=== PATIENT | male | born 1950 | race Caucasian/White ===

== ENCOUNTER 2024-03-20 06:38 | Emergency (ER) | payer MEDICARE, SELFPAY ==
[2024-03-20 06:38] VITALS: PULSE 77; RESP 18; O2SAT 98; BMI 21.1
[2024-03-20 07:26] VITALS: BP 130/92; PULSE 100; RESP 16; TEMP 36.6; O2SAT 100
--- NOTE | 2024-03-20 07:34 | XR_ITS ---
Examination: CT abdomen and pelvis without contrast. Coronal 3-D reconstructions. Sagittal 2-D reconstructions. Date and time of exam:March 20, 2024 at 0752 hrs. Indications: Right groin pain 6 months CTDI: vol (mGy): 7.97 DLP: (mGycm): 436 Technique: Axial images of the abdomen have been obtained, 3 mm slice thickness Intravenous contrast material has not been administered. Low dose protocols were performed. One or more of the following dose reduction techniques were used; automated exposure control, adjustment of the mA and/or KV according to patient size, use of iterative reconstruction technique. Findings: No focal liver or splenic lesion. Distended small bowel loops No pancreatic mass. Moderate bilateral renal parenchymal scar formation, no hydronephrosis Abdominal aortic calcification no aneurysmal dilatation 3 cm umbilical hernia. No pericecal inflammatory change. Small bowel is present in bilateral inguinal hernia defects, incarcerated bowel in the right inguinal hernia defect Moderate prostatomegaly Impression: Small bowel obstruction secondary to incarcerated small bowel in a right inguinal hernia defect, recommend surgical consultation
--- NOTE | 2024-03-20 07:35 | PD.EDRME ---
Rapid Medical Screening Exam E Arrival date/time: 03/20/24 06:38 73-year-old male with history of hernia x 6 months right inguinal region presents to the emergency department today complaints of pain to his funny Chief Complaint: Hip Injury/Pain Time Seen by Provider: 03/20/24 06:42 Vital signs: Vital Signs Temperature 97.8 F 03/20/24 07:26 Pulse Rate 100 03/20/24 07:26 Respiratory Rate 16 03/20/24 07:26 Blood Pressure 130/92 H 03/20/24 07:26 Pulse Oximetry (%) 100 03/20/24 07:26 Oxygen Delivery Method Room Air 03/20/24 07:26
[2024-03-20] MEDS: HYDROcodone/APAP 5/325 TABLET 1 TAB PO (07:41)
[2024-03-20] MEDS: ONDANSETRON ODT 4 MG TABRAP PO (07:42)
[2024-03-20 07:55] LABS: Basophils # (Auto) 0.1 Thou/mm3 (0.0-0.2); Basophils % (Auto) 1 % (0-2.5); Eosinophils # (Auto) 0.6 Thou/mm3 (0.0-0.5); Eosinophils % (Auto) 6 % (0-10); Hematocrit 43.4 % (41.0-53.0); Hemoglobin 14.9 g/dL (13.5-16.0); Immature Granulocytes % (Auto) 0 % (0-0); Immature Granulocytes Auto 0.02 Thou/mm3 (0.00-0.00); Lymphocytes # (Auto) 2.1 Thou/mm3 (1.0-4.8); Lymphocytes % (Auto) 20 % (10-50); Mean Corpuscular HGB Conc 34.3 g/dl (31.0-37.0); Mean Corpuscular Hemoglobin 31.6 pg (25.0-35.0); Mean Corpuscular Volume 92 fL (80-100); Monocytes # (Auto) 0.7 Thou/mm3 (0.0-0.8); Monocytes % (Auto) 7 % (0-12); Neutrophils # (Auto) 7.1 Thou/mm3 (1.8-7.7); Neutrophils % (Auto) 67 % (37-80); Nucleated Red Blood Cell % 0 /100 WBC (0); Platelet Count 228 Thou/mm3 (140-440); RDW Standard Deviation 42.7 fL (35.1-43.9); Red Blood Count 4.72 Miln/mm3 (4.50-5.90); White Blood Count 10.6 Thou/mm3 (3.8-10.6)
[2024-03-20 08:12] LABS: Alanine Aminotransferase 12 U/L (10-49); Albumin, Serum 5.1 gm/dL (3.4-4.8); Albumin/Globulin Ratio 1.6 (1.2-2.2); Alkaline Phosphatase 97 U/L (46-116); Anion Gap 10 (7-16); Aspartate Amino Transferase 11 U/L (0-34); BUN/Creatinine Ratio 18 Ratio (12-20); Bilirubin,Total 0.9 mg/dL (0.3-1.2); Blood Urea Nitrogen 49 mg/dL (9-23); Calcium 10.3 mg/dL (8.3-10.6); Calcium (Corrected) 10.3 mg/dL (8.5-10.1); Carbon Dioxide 29.5 mMol/L (20.0-31.0); Chloride 98 mMol/L (98-107); Creatinine (Component) 2.8 mg/dL (0.6-1.3); Estimated Creatinine Clearance 20.7 mL/min (>60); Globulin 3.1 gm/dL (2.3-3.5); Glucose 116 mg/dL (74-106); Lipase 47 U/L (12-53); Osmolality,Calculated 287 (275-295); Potassium 4.6 mMol/L (3.4-5.1); Sodium 137 mMol/L (136-145); Total Protein 8.2 gm/dL (5.7-8.2); eGFR 23 See Note
--- NOTE | 2024-03-20 08:38 | PC.NURSE ---
FEED BLENDER WENT TO PUT PT IN ROOM AND PT STATED I WANT TO LEAVE. TRIAGE NURSE INFORMED PT THAT HE WOULD BE LEAVING AGAINST MEDICAL ADVICE AND THAT SIGNING THE AMA FORM WOULD RELIEVE HOSPITAL OF RESPONSIBILITY IF HE GOT WORSE OR . JAMAR GARCIA N/P CAME TO TRIAGE DESK TO TALK WITH PT AND TOLD PT THAT HE NEEDED EMERGENT SURGERY AND PT SAID I WILL COME BACK AND SCHEDULE IT ANOTHER TIME. PT SIGNED AMA FORM. 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 PT STATES I DON'T CARE AND WANT TO GO HOME.
[2024-03-20 08:46] LABS: Collection Type, Urine Clean Catch; Squamous Epithelial Cell,Urine 0 /hpf (0-5)
[2024-03-20 08:52] LABS: Bilirubin,Urine Negative (Negative); Blood,Urine Negative (Negative); Clarity,Urine Clear (Clear/Hazy); Color,Urine Yellow (Lt Yel-Yel); Culture Indicated,Urine Not Indicated; Glucose, Urine Negative (Negative); Hyaline Casts,Urine < 1 /hpf (0-1); Ketones,Urine Negative (Negative); Leukocyte Esterase,Urine Negative (Negative); Nitrite,Urine Negative (Negative); PH,Urine 6.5 (5.0-7.0); Protein,Urine 1+ (Neg - Trace); RBC,Urine 2 /hpf (0-3); Specific Gravity,Urine 1.023 (1.001-1.035); Urobilinogen,Urine Negative mg/dL (0.0-1.0); WBC,Urine 1 /hpf (0-5)
[2024-03-20 09:02] LABS: Amphetamine/Methamp Scrn,U Positive (Negative); Barbiturate Screen,Urine Negative (Negative); Benzodiazepines Screen,Urine Negative (Negative); Benzoylecgonine Screen, Ur Negative (Negative); Fentanyl Screen,Urine Negative (Negative); Opiate Screen,Urine Negative (Negative); THC Screen,Urine Negative (Negative)
== END 2024-03-20 08:38 | disposition left against medical advice (07) ==
LOC: SERX 08:10
PROVIDERS: Nurse Practitioner Primary Care; Emergency Provider Emergency Medicine; PCP Family Medicine
DX: M25.559 Pain in unspecified hip (principal); Z53.29 Procedure and treatment not carried out because of patient's decision for other reasons
CPT/HCPCS: 36415; 74176; 80053; 80307; 81001; 83690; 85025; 99281; Q0162; A9270

== ENCOUNTER 2024-03-20 12:34 | Emergency (ER) | payer MEDICARE, SELFPAY ==
[2024-03-20 12:42] VITALS: BMI 22.4
[2024-03-20 12:51] VITALS: BP 131/102; PULSE 100; RESP 20; TEMP 36.6; O2SAT 99
[2024-03-20] MEDS: CEFOXITIN 2 GM in SODIUM CHLORIDE 0.9% (P) 50 ML IV (12:53)
--- NOTE | 2024-03-20 12:54 | EDNOTE_ITS ---
<Statement entered by Genesis Longoria MD - 03/21/24 09:15> As co-signing physician, I was present and available for consult prn. I concur with the plan and care as documented by the midlevel provider. ED Abdominal Pain RME/HPI General Chief Complaint: Abdominal Pain Stated complaint: ABD PAIN, AMA EARLIER, HAS BOWEL OBSTRUCTION Time seen by provider: 03/20/24 12:44 Arrival date/time: 03/20/24 12:34 RME / HPI RME / HPI narrative: 73-year-old male patient with significant history of methamphetamine abuse, history of right inguinal hernia, came in for evaluation regarding pain and worsening swelling to the right inguinal area, has been ongoing since yesterday, getting worse today, severity 10 out of 10. Patient also complaining of nausea but denies any vomiting denies any fever denies any diarrhea constipation denies any other complaints. Patient was seen earlier workup was done and left AMA. Came back because of worsening pain. Denies any abdominal surgery. Related Data Allergies Allergy/AdvReac Type Severity Reaction Status Date / Time Penicillins Allergy Severe Rash Verified 03/20/24 12:36 Review of Systems Review of Systems Narrative Review of Systems: Review of system reviewed and within normal limits except mentioned in HPI ED Exam Narrative Physical exam: VITAL SIGNS: Reviewed. GENERAL APPEARANCE: Alert and interactive, follows commands, no acute distress, HEAD AND FACE: Non-traumatic. ENT: PERRL, pink conjunctivitis, eyelid no trauma, Mucous membrane moist. NECK: Supple, nontender, no nuchal rigidity. CHEST: No tenderness, no crepitus, no paradoxical movement, no retractions. LUNGS: Clear, well ventilated, symmetric, no rales, no wheezing, no ronchi, no stridor, good breath sounds bilaterally. HEART: Regular rate, regular rhythm, no murmur, no gallops. ABDOMEN: Soft, positive bowel sounds, nondistended, no guarding, swelling tenderness right inguinal hernia, hard to touch, RECTAL: Deferred. GENITAL: Deferred. NEUROLOGICAL: Gross motor function intact sensory function intact, Appropriate for age. MUSCULOSKELETAL: low back nontender, full range of motion. EXTREMITIES: Nontender, full range of motion. SKIN: Color pink, dry, no rash, no lacerations, no abrasions, no contusions. LYMPHATICS: Deferred. Course Quality Measures none Orders Category Date Time Status EKG (ED ONLY) *Do not use* NOW Care 03/20/24 13:21 Completed Insert IV NOW Care 03/20/24 13:21 Active Consult to General Surgery Stat Cons 03/20/24 12:53 Ordered EKG (ED Only) Stat Exams 03/20/24 13:21 Draft Lactate (Lactic Acid) Stat Lab 03/20/24 15:00 Completed Cefoxitin [Mefoxin] 2 gm Med 03/20/24 12:52 Discontinued Sodium Chloride 0.9% (P) [Ns 0.9% (P)] 50 ml IV X1 HYDROmorphone INJ [Dilaudid Inj] Med 03/20/24 13:41 Discontinued 1 mg IVP X1 ONE Morphine Inj Med 03/20/24 12:52 Discontinued 4 mg IVP X1 ONE Ondansetron Inj [Zofran Inj] Med 03/20/24 12:52 Discontinued 4 mg IV X1 ONE Sodium Chloride 0.9% 1000 ml [Ns] 1,000 ml Med 03/20/24 14:51 Discontinued IV 999 mls/hr Vital Signs Vital signs: Vital Signs Temperature 97.8 F 03/20/24 12:51 Pulse Rate 100 03/20/24 12:51 Respiratory Rate 20 03/20/24 12:51 Blood Pressure 131/102 H 03/20/24 12:51 Pulse Oximetry (%) 99 03/20/24 12:51 Oxygen Delivery Method Room Air 03/20/24 12:51 Abdominal Pain MDM MDM Narrative MDM Narrative:: 73-year-old male patient with significant history of methamphetamine abuse, history of right inguinal hernia, came in for evaluation regarding pain and worsening swelling to the right inguinal area, has been ongoing since yesterday, getting worse today, severity 10 out of 10. Patient also complaining of nausea but denies any vomiting denies any fever denies any diarrhea constipation denies any other complaints. Patient was seen earlier workup was done and left AMA. Came back because of worsening pain. Denies any abdominal surgery. I reviewed patient's CT scan and laboratory workup that was done earlier today and showed small bowel obstruction with incarcerated right-sided inguinal hernia. I tried to reduce it after morphine, with minimal success, Dr. Longoria my EDMD tried to reduce it. It Dilaudid IV 1 mg and 100% successful reduction. Patient verbalized complete resolution of pain. Spoke with Dr. Ng, general surgeon on-call told me that there is no need to admit this patient patient is safe to be discharged home and just follow-up in the clinic next week Patient data External records reviewed:: None Clinical information provided by:: patient Social determinants that could affect healthcare access:: substance use Patient has the following chronic illnesses:: Methamphetamine abuse How is presenting disease/condition affected by chronic disease/condition?: no chronic disease Evaluation data The following diagnostics were reviewed and interpreted by me:: lab results, radiology exam(s) and EKG tracing(s) Lab and/or radiology exams considered but not ordered:: None Interpretation Summary: Patient's EKG showed sinus rhythm, ventricular rate of 80 bpm, no ST segment elevation or depression noted. CT scan of the abdomen and pelvis showed small bowel obstruction secondary to incarcerated right inguinal hernia. Laboratory workup all came back normal. Lactic acid also also noted to be normal. Medications / Prescriptions Medications or Prescriptions considered but not ordered:: None Medication administrations:: Medication Administration History Discontinued Medications Hydromorphone HCl (Hydromorphone Inj 2 Mg/Ml Vial) 1 mg IVP X1 ONE Stop: 03/20/24 13:42 Last Admin: 03/20/24 13:45 Dose: 1 mg Documented By: DANIELLA Cefoxitin Sodium 2 gm/ Sodium (Chloride) 50 mls @ 100 mls/hr IV X1 ONE Stop: 03/20/24 13:21 Last Infusion: 03/20/24 13:25 Dose: Infused Documented By: Admin: 03/20/24 12:53 Dose: 100 mls/hr Documented By: CANDICE Sodium Chloride (Ns) 1,000 mls @ 999 mls/hr IV .Q1H1M ONE Stop: 03/20/24 15:51 Last Infusion: 03/20/24 19:08 Dose: Infused Documented By: Admin: 03/20/24 16:40 Dose: 999 mls/hr Documented By: CANDICE Morphine Sulfate (Morphine Sulf Inj 10 Mg/Ml Vial) 4 mg IVP X1 ONE Stop: 03/20/24 12:53 Last Admin: 03/20/24 13:05 Dose: 4 mg Documented By: TERRI Ondansetron HCl (Ondansetron Inj 2 Mg/Ml Inj 2 Ml) 4 mg IV X1 ONE; Protocol Stop: 03/20/24 12:53 Last Admin: 03/20/24 13:05 Dose: 4 mg Documented By: IV fluids, morphine, Dilaudid, cefoxitin IV Consultations Consultation(s) initiated? (list below): Yes Consultation #1 (Physician, Specialty, Details): Spoke with Dr. Ng, general surgeon on-call, thank you Dr. Ng Diagnosis Differential diagnosis abdominal pain: abdominal pain, constipation and other (Right reducible inguinal hernia) Most likely diagnosis given after review of the tests above:: Right reducible inguinal hernias Admission Indicated Admission indicated?: not indicated Explain why admission is indicated or not indicated:: Stable. Patient was tolerating p.o. intake in the emergency room with no recu rrence of abdominal pain or inguinal hernia. Patient is passing gas. Admission Request Was there a request for admission?: No Disposition Plan Disposition Plan: Discharge Discharge Attestation Discharge Attestation: The patient and all family members were given an opportunity to ask questions and understood the discharge instructions. Discharge instructions specifically effects, indications for sooner follow up or return to the emergency department, and the expected course of current diagnosis. Patient condition: Stable Discharge Plan Plan Patient Disposition: HOME (Self Care) Disposition Comment: Stable Prescriptions/Referrals Referrals: No Primary/Family,Physician [Primary Care Provider] - In 1 week Problem List Clinical Impression: Reducible right inguinal hernia Patient/Caregiver Discharge Instructions Discharge Activity: activity as tolerated Education Materials: What Is a Hernia? Additional Instructions: Thank you for the opportunity for serving you today. You are stable for discharged . You are advised to: Follow-up with Dr. Ng's office in 1 to 2 days Return to ED for worsening of symptoms Increase oral fluids No pushing no lifting until seen by general surgeon Print Language: Fijian Stand Alone Forms: Sary Award Info., Patient Portal Info Letter PA/ANUP Supervising Physician LUIS/ANUP Supervising Physician: MD Tory
[2024-03-20] MEDS: ONDANSETRON INJ 2 MG/ML INJ 2 ML 4 MG IV (13:05)
[2024-03-20] MEDS: MORPHINE SULF INJ 10 MG/ML VIAL 4 MG IVP (13:05)
--- NOTE | 2024-03-20 13:21 | EKG_ITS ---
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
[2024-03-20 13:35] VITALS: BP 106/72; PULSE 82; RESP 18; TEMP 36.4; O2SAT 94
[2024-03-20] MEDS: HYDROmorphone INJ 2 MG/ML VIAL 1 MG IVP (13:45)
--- NOTE | 2024-03-20 14:28 | PD.EDADDENDU ---
Emergency Room Addendum <Lena Lindsey - Last Filed: 03/20/24 15:06> Addendum Narrative: 1400: I was called for right inguinal hernia reduction. Please refer to the emergency department record for history and examination from initial note. Hernia Reduction Procedure Note Consent: Verbal consent obtained. Risks and benefits: risks, benefits and alternatives were discussed Consent given by: patient Patient understanding: patient states understanding of the procedure being performed Patient consent: the patient's understanding of the procedure matches consent given Patient identity confirmed: verbally with patient and arm band Time out: Immediately prior to procedure a time out was called to verify the correct patient, procedure, equipment, sales support technician and site/side marked as required. Location details: right inguinal hernia Reduction Procedure: Direct pressure, constant Results: After procedure, fully reduced. No TTP. Complication: Tolerated well without complication. <Genesis Longoria MD - Last Filed: 04/12/24 13:46> Addendum Narrative: Please refer to the emergency department record for history and examination from initial note. Indication: Incarcerated right inguinal hernia Procedure: Right Inguinal Hernia Reduction Consent: Verbal consent obtained. Risks and benefits: risks, benefits and alternatives were discussed Consent given by: patient Patient understanding: patient states understanding of the procedure being performed Patient consent: the patient's understanding of the procedure matches consent given Patient identity confirmed: verbally with patient and arm band Time out: Immediately prior to procedure a time out was called to verify the correct patient, procedure, equipment, sales support technician and site/side marked as required. Location details: right inguinal hernia Reduction Procedure: Direct pressure, constant Results: After procedure, fully reduced. No TTP. Complication: Tolerated well without complication.
[2024-03-20] MEDS: SODIUM CHLORIDE 0.9% 1000 ML 1,000 ML 999 ML IV (16:40)
[2024-03-20 17:00] VITALS: BP 149/98; PULSE 67; RESP 16; TEMP 36.6; O2SAT 97
[2024-03-20 19:29] VITALS: BP 134/95; PULSE 67; RESP 14; O2SAT 95
--- NOTE | 2024-03-20 19:29 | PC.NURSE ---
Assumed care of pt. Pt is oriented but drifts back to sleep when not stimulated. Pt's pupils are pinpoint. Pt provided with meal tray but he continues to drift to sleep and has been unable to eat at this time.
[2024-03-20 20:23] VITALS: BP 113/83; PULSE 66; RESP 16; O2SAT 97
[2024-03-20 23:19] VITALS: PULSE 67; RESP 16; O2SAT 98
== END 2024-03-20 23:20 | disposition home or self-care (01) ==
PROVIDERS: Nurse Practitioner Family; Emergency Provider Emergency Medicine
DX: K40.30 Unilateral inguinal hernia, with obstruction, without gangrene, not specified as recurrent (principal)
CPT/HCPCS: 36415; 83605; 93005; 96361; 96365; 96375; 99284; J0694; J2270; J2405; J3490; J7030; J7050

== ENCOUNTER 2024-04-16 07:30 | Day surgery (SDC) | payer MEDICARE, SELFPAY ==
--- NOTE | 2024-04-15 12:10 | EKG_ITS ---
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
[2024-04-15 12:14] VITALS: BMI 21.1
[2024-04-15 13:18] LABS: Basophils # (Auto) 0.1 Thou/mm3 (0.0-0.2); Basophils % (Auto) 1 % (0-2.5); Eosinophils # (Auto) 0.6 Thou/mm3 (0.0-0.5); Eosinophils % (Auto) 7 % (0-10); Hematocrit 42.2 % (41.0-53.0); Hemoglobin 14.2 g/dL (13.5-16.0); Immature Granulocytes % (Auto) 0 % (0-0); Immature Granulocytes Auto 0.03 Thou/mm3 (0.00-0.00); Lymphocytes # (Auto) 1.9 Thou/mm3 (1.0-4.8); Lymphocytes % (Auto) 24 % (10-50); Mean Corpuscular HGB Conc 33.6 g/dl (31.0-37.0); Mean Corpuscular Hemoglobin 31.3 pg (25.0-35.0); Mean Corpuscular Volume 93 fL (80-100); Monocytes # (Auto) 0.5 Thou/mm3 (0.0-0.8); Monocytes % (Auto) 7 % (0-12); Neutrophils # (Auto) 4.9 Thou/mm3 (1.8-7.7); Neutrophils % (Auto) 62 % (37-80); Nucleated Red Blood Cell % 0 /100 WBC (0); Platelet Count 205 Thou/mm3 (140-440); RDW Standard Deviation 43.4 fL (35.1-43.9); Red Blood Count 4.53 Miln/mm3 (4.50-5.90)
[2024-04-15 13:46] LABS: Alanine Aminotransferase 11 U/L (10-49); Albumin, Serum 4.3 gm/dL (3.4-4.8); Albumin/Globulin Ratio 1.6 (1.2-2.2); Alkaline Phosphatase 97 U/L (46-116); Anion Gap 2 (7-16); Aspartate Amino Transferase 12 U/L (0-34); BUN/Creatinine Ratio 16 Ratio (12-20); Bilirubin,Total 0.4 mg/dL (0.3-1.2); Blood Urea Nitrogen 31 mg/dL (9-23); Carbon Dioxide 26.6 mMol/L (20.0-31.0); Chloride 106 mMol/L (98-107); Creatinine (Component) 1.9 mg/dL (0.6-1.3); Estimated Creatinine Clearance 30.4 mL/min (>60); Globulin 2.7 gm/dL (2.3-3.5); Glucose 101 mg/dL (74-106); Osmolality,Calculated 276 (275-295); Potassium 4.6 mMol/L (3.4-5.1); Sodium 135 mMol/L (136-145); eGFR 37 See Note
[2024-04-16] VITALS (10 sets, daily range): BP systolic 138–176; BP diastolic 93–115; PULSE 64–90; RESP 12–20; TEMP 36.3–36.7; O2SAT 95–100; BMI 24.7
--- NOTE | 2024-04-16 11:05 | SUR.PHASEI ---
1105: Pt. arrived with oral airway in place, vitals stable, breathing unlabored, no signs of distress, dressing to lower ABD CDI, no active bleed noted, report received from Anali GARDINER and Cristobal HENRIQUEZ.
--- NOTE | 2024-04-16 11:41 | ESOP_ITS ---
Date of Procedure 04/16/24 Pre Op Diagnosis Incarcerated bilateral inguinal hernia Post Op Diagnosis Incarcerated indirect right inguinal hernia Incarcerated direct left inguinal hernia Procedure Repair of incarcerated bilateral inguinal hernias with mesh Findings Patient was found to have indirect right inguinal hernia with incarcerated small bowel. He had incarcerated left inguinal hernia with incarcerated preperitoneal fat. Procedure Description Patient brought into the operating room in supine position. After administration of general endotracheal anesthesia, patient's bilateral groins were shaved, prepped and draped in standard surgical manner. The procedure started on the patient's right side. The right inguinal crease was anesthetized with half percent Marcaine. An approximately 8 cm incision was made and dissection was carried to subcutaneous tissue. The Reg's fascia was divided and the external oblique aponeurosis was opened towards the external ring. The hernia sac and the spermatic cord structures were from the posterior aspect of the external oblique aponeurosis at the level of pubic tubercle. The hernia sac was then meticulously dissected off the spermatic cord structures at the level of internal ring. The hernia sac was opened and the contents that were incarcerated small bowel, reduced. The hernia sac was then ligated at the level of internal ring. The floor of inguinal canal was then reconstructed with ultra Pro proceed mesh. The mesh was secured with running 2-0 Prolene suture. The mesh secured medially to the pubic tubercle, superiorly into the conjoin tendon, inferiorly and to the shelving edge of inguinal ligament, the mesh was placed around the cord structures and tacked under the external oblique aponeurosis laterally. The area was copiously and thoroughly washed and irrigated, all the fluids were suctioned and the suction fluid returned clear. Hemostasis was adequate and satisfactory. External oblique aponeurosis was closed with running 2-0 Vicryl suture, and Reg's fascia was closed with interrupted suture using 3-0 Vicryl. The incision was closed with 4-0 Monocryl in subcutaneous fashion. I then turned my attention to patient's left side. Patient was noted to have an incarcerated direct left inguinal hernia. The hernia sac was reduced and the defect was closed with interrupted [id number] sutures using 0 Vicryl. The floor of inguinal canal was reconstructed in similar fashion to the right side and the remainder of the procedure was performed in similar fashion. Instruments, needles and sponge counts were reported to be correct ?2. Patient tolerated the procedure well. He was extubated, breathing spontaneously and without difficulty and was transferred to postanesthesia care in stable condition. Anesthesia GETA and local Pathology / specimen Other (Right inguinal hernia sac) Estimated Blood Loss 20 Condition Stable Disposition PACU Surgeon Ashley Ng MD Surgical Staff Operation Date: 04/16/24 09:45 Case Staff CERTIFIED SURGICAL TECHNICIAN: Cristobal De Leon RNpie dough roller: Leeanna Jha
[2024-04-16] MEDS: LABETALOL INJ 5 MG/ML VIAL 20 ML 10 MG IVP (11:52)
--- NOTE | 2024-04-16 12:10 | SUR.PHASEII ---
1210: Pt. AAOx4, vitals stable, breathing unlabored, no complaint of pain or nausea, dressing to lower ABD CDI, no active bleed noted, ABD Binder in place, pt. tolerated sips of water well, pt. ambulated to wheelchair with steady gait and no assist, no complications. Gave discharge instructions to the pt. and his ride, both verbalized understanding and had no further questions. Pt. left with all personal belongings.
== END 2024-04-16 12:10 | disposition home or self-care (01) ==
PROVIDERS: Anesthesiology; PCP Family Medicine; Referring Provider Surgery; Visit Provider Surgery
PROC: (CPT 49507; principal; 2024-04-16 09:30)
DX: K40.00 Bilateral inguinal hernia, with obstruction, without gangrene, not specified as recurrent (principal); Z01.810 Encounter for preprocedural cardiovascular examination
CPT/HCPCS: 49507; 36415; 80053; 85025; 93005; A4217; A4649; C1781; J0131; J0690; J1100; J2405; J2704; J3010; J3490; J1920

== ENCOUNTER 2024-10-01 19:20 | Emergency (ER) | payer MEDICARE, SELFPAY ==
[2024-10-01 19:21] VITALS: BP 114/79; PULSE 91; RESP 17; TEMP 36.7; O2SAT 94; BMI 21.1
[2024-10-01 19:25] VITALS: PULSE 61; RESP 18; O2SAT 95
--- NOTE | 2024-10-01 19:27 | PD.EDWEAK ---
ED Weakness RME/HPI General Chief complaint: Weakness Stated complaint: WEAKNESS Time Seen by Provider: 10/01/24 19:24 Arrival date/time: 10/01/24 19:20 Limitations: no limitations RME / HPI RME / HPI Narrative: Dr. Junior's Main ED Evaluation: 73yo male BLAISE from home presents to the ED for a chief complaint of generalized weakness x 3 days. Patient has been having intermittent N/V/D, intermittent dizziness, abdominal cramping, and generalized weakness for the last 3 days. Patient denies any fever, chills, or any other associated symptoms. Related Data Previous Rx's ?Medication ?Instructions ?Recorded docusate sodium 100 mg capsule 100 mg PO BID #60 caps 04/16/24 (Colace) hydrocodone 5 mg-acetaminophen 325 1 tab PO Q6H PRN pain (scale score 04/16/24 mg tablet 7-10) #30 tabs ibuprofen 600 mg tablet 600 mg PO Q8H PRN pain (scale 04/16/24 score 4-6) #15 tabs Allergies Allergy/AdvReac Type Severity Reaction Status Date / Time Penicillins Allergy Severe Rash Verified 04/16/24 08:16 Review of Systems Review of Systems Systems Reviewed: All systems reviewed, normal except as documented Past Medical History Past Medical History NEUROLOGIC: Negative Neurological Disorders or Seizures CARDIAC: Positive Cardiac Disorders and Hypertension (states he does not take meds and its only a little elevated); Negative Congestive Heart Failure RESPIRATORY: Negative Chronic Obstructive Pulmonary Disease (COPD) GASTROINTESTINAL: Negative Gastrointestinal Disorders or Hepatitis GENITOURINARY: Positive Inguinal Hernia; Negative Renal Disease MUSCULOSKELETAL: Positive Musculoskeletal Disorders, Arthritis and Fractures (left femur) ENDOCRINE: Negative Endocrine Disorders, Diabetes Mellitus Type 1 or Diabetes Mellitus Type 2 HEMATOLOGIC: Negative Blood Disorders OTHER HISTORY: Positive Hospitalization (surgery, broken neck no surgery just neck brace for weeks), Chicken Pox, Measles and Mumps; Negative Autoimmune Disease, Shingles, Blood Transfusions, Blood Transfusion Reaction, Anesthesia Reactions or Cancer Family History FAMILY HISTORY: Positive Family Cancer; Negative Family Psychiatric Problems, Family Respiratory Disorders, Family Cardiac Disorders, Family Gastrointestinal Problems, Family Surgery or Family Anesthesia Reaction Surgical History SURGICAL: Positive Open Reduction Internal Fixation (Left femur has metal) Social History SMOKING STATUS: Never smoker SUBSTANCE USE: does not use ED Exam General Limitations: Present no limitations General appearance: Present alert, in no apparent distress and other (dissheveled) Head Head exam: Present atraumatic Eye Eye exam: Present normal appearance, PERRL and EOMI ENT ENT exam: Present normal exam, normal oropharynx and mucous membranes moist Neck Neck exam: Present normal inspection, full ROM and trachea midline Chest Chest inspection: Present normal inspection and symmetric chest wall rise Respiratory Respiratory exam: Present normal lung sounds bilaterally Cardiovascular Cardiovascular exam: Present regular rate, normal rhythm and normal heart sounds Abdominal Exam Abdominal exam: Present soft and diminished bowel sounds; Absent guarding, rebound or Akers's sign Extremities Exam Extremities exam: Present normal inspection and full ROM Back Exam Back exam: Present normal inspection and full ROM Neurological Exam Neurological exam: Present alert, oriented X3 and CN II-XII intact Psychiatric Psychiatric exam: Present normal affect and normal mood Skin Skin exam: Present warm, dry, intact and normal color; Absent other (jaundice) Course Course Course Narrative: CXR is ordered for determining the etiology of weakness. Quality Measures none Orders Category Date Time Status EKG (ED ONLY) *Do not use* NOW Care 10/01/24 19:47 Completed Insert IV STAT Care 10/01/24 19:52 Active EKG (ED Only) Stat Exams 10/01/24 19:47 Draft XR chest 1V Stat Exams 10/01/24 19:48 Completed CBC Stat Lab 10/01/24 20:31 Completed CMP [Comprehensive Metabolic Panel] Stat Lab 10/01/24 20:31 Completed Troponin I Stat Lab 10/01/24 20:31 Completed Urinalysis Stat Lab 10/01/24 20:27 Completed Ondansetron Inj [Zofran Inj] Med 10/01/24 19:47 Discontinued 4 mg IV PRN PRN Ondansetron Inj [Zofran Inj] Med 10/01/24 19:52 Active 4 mg IVP Q1H PRN Sodium Chloride 0.9% 1000 ml [Ns] 1,000 ml Med 10/01/24 19:52 Discontinued IV 999 mls/hr Sodium Chloride 0.9% 500 ml [Ns] 500 ml Med 10/01/24 19:47 Discontinued IV 999 mls/hr Reevaluation(s) Reevaluation #1: Patient states he feels better and is requesting to be discharged home. He has not had any emetic or diarrhea episodes here in the ED. Time: 22:49 Vital Signs Vital signs: Vital Signs Temperature 98.1 F 10/01/24 19:21 Pulse Rate 91 10/01/24 19:21 Respiratory Rate 17 10/01/24 19:21 Blood Pressure 114/79 10/01/24 19:21 Pulse Oximetry (%) 94 L 10/01/24 19:21 Oxygen Delivery Method Room Air 10/01/24 19:21 Weakness MDM Narrative MDM Narrative:: Scribe Attestation: 10/01/24 - Mila Ramirez am scribing for and in the presence of Dr. Junior. Patient data External records reviewed:: [facility] previous records (Per chart review, patient was seen here on 03/20/24 for reducible right hernia.) Clinical information provided by:: patient Social determinants that could affect healthcare access:: none Patient has the following chronic illnesses:: HTN How is presenting disease/condition affected by chronic disease/condition?: uneffected by Evaluation data The following diagnostics were reviewed and interpreted by me:: lab results, radiology exam(s) and EKG tracing(s) Lab and/or radiology exams considered but not ordered:: none Interpretation Summary: CBC normal, Creatinine 2.2, Troponin normal, UA unremarkable. EKG done at 2006, NSR, rate of 69, 1st degree AV block, RBBB, PA: 248, QTc: 411, no STEMI, according to my interpretation. --------- [place] [facility] Report Signed Patient: RAVI BABCOCK. Record#: [id number] Birthdate: 1950 Age/Sex: 73 / M Location: [facility] Attending Dr: Ordering Physician: Sandra Guevara MD Date of Service: 10/01/24 Procedure(s): XR chest 1V Accession Number(s): [id number] cc: Cristobal Swanson MD; Sandra Guevara MD; Brian Madrigal MD~ Examination: AP chest single view Technique one AP portable upright chest single view Date and time: October 01, 2024, 202 hours INDICATIONS: Vomiting and nausea beginning 3 days ago. FINDINGS: Normal heart size Ectatic thoracic aorta. No pneumonia or pulmonary edema. Advanced osteoarthritis right glenohumeral joint IMPRESSION: No pneumonia or pulmonary edema Dictated By: Cristobal Swanson MD Signed By: <Electronically signed by Cristobal Swanson MD in OV> 10/01/241 Medications / Prescriptions Medications or Prescriptions considered but not ordered:: none Medication administrations:: Medication Administration History Ondansetron HCl (Ondansetron Inj 2 Mg/Ml Inj 2 Ml) 4 mg IVP Q1H PRN PRN Reason: PERSISTENT NAUSEA OR VOMITING Discontinued Medications Sodium Chloride (Ns) 500 mls @ 999 mls/hr IV .Q31M ONE Stop: 10/01/24 20:17 Last Admin: 10/01/24 20:10 Dose: Not Given Documented By: VG Non-Admin Reason: Discontinued Sodium Chloride (Ns) 1,000 mls @ 999 mls/hr IV .Q1H1M ONE Stop: 10/01/24 20:52 Last Infusion: 10/01/24 21:37 Dose: Infused Documented By: Admin: 10/01/24 20:36 Dose: 999 mls/hr Documented By: EF Ondansetron HCl (Ondansetron Inj 2 Mg/Ml Inj 2 Ml) 4 mg IV PRN PRN PRN Reason: NAUSEA OR VOMITING see above Consultations Consultation(s) initiated? (list below): No Diagnosis Weakness Differential Diagnosis: dehydration and other (AMEENA, viral syndrome, vomiting, diarrhea, atypical presentation of CAD) Most likely diagnosis given after review of the tests above:: see clinical impression below Admission Indicated Admission indicated?: not indicated Admission Request Was there a request for admission?: No Disposition Plan Disposition Plan: Discharge Discharge Attestation Discharge Attestation: The patient and all family members were given an opportunity to ask questions and understood the discharge instructions. Discharge instructions specifically effects, indications for sooner follow up or return to the emergency department, and the expected course of current diagnosis. Patient condition: Stable Discharge Plan Plan Patient Disposition: HOME (Self Care) Prescriptions/Referrals Prescriptions/Med Rec: No Action docusate sodium [Colace] 100 mg capsule 100 mg PO BID Qty: 60 0RF ibuprofen 600 mg tablet 600 mg PO Q8H PRN (Reason: pain (scale score 4-6)) Qty: 15 0RF hydrocodone-acetaminophen 5-325 mg tablet 1 tab PO Q6H MDD 4 PRN (Reason: pain (scale score 7-10)) Qty: 30 0RF Referrals: [facility] [Outside] - In 1 week Brian Madrigal MD [Primary Care Provider] - 10/05/24 (For a recheck) Problem List Clinical Impression: Dehydration, Vomiting, Diarrhea Patient/Caregiver Discharge Instructions Education Materials: ED Dehydration (Adult), ED Diet for Vomiting or ... Additional Instructions: Stay hydrated. Stay out of the sun for the next 24 hours. Follow-up with your primary care on Saturday. If you can't get an appointment, follow-up at the [facility]. Return to the ED for any worsening symptoms or as needed. Print Language: Honduran Stand Alone Forms: Sary Award Info., Work/School Release, Patient Portal Info Letter
--- NOTE | 2024-10-01 19:47 | EKG_ITS ---
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
--- NOTE | 2024-10-01 19:48 | XR_ITS ---
Examination: AP chest single view Technique one AP portable upright chest single view Date and time: October 01, 2024, 2021 hours INDICATIONS: Vomiting and nausea beginning 3 days ago. FINDINGS: Normal heart size Ectatic thoracic aorta. No pneumonia or pulmonary edema. Advanced osteoarthritis right glenohumeral joint IMPRESSION: No pneumonia or pulmonary edema
[2024-10-01 20:05] VITALS: BMI 21.1
[2024-10-01 20:07] VITALS: BP 140/85; PULSE 71; RESP 18; TEMP 36.5; O2SAT 97
[2024-10-01] MEDS: SODIUM CHLORIDE 0.9% 1000 ML 1,000 ML 999 ML IV (20:36)
[2024-10-01 20:37] LABS: Basophils # (Auto) 0.0 Thou/mm3 (0.0-0.2); Basophils % (Auto) 0 % (0-2.5); Eosinophils # (Auto) 0.1 Thou/mm3 (0.0-0.5); Eosinophils % (Auto) 1 % (0-10); Hematocrit 43.0 % (41.0-53.0); Hemoglobin 13.9 g/dL (13.5-16.0); Immature Granulocytes Auto 0.03 Thou/mm3 (0.00-0.00); Lymphocytes # (Auto) 1.9 Thou/mm3 (1.0-4.8); Lymphocytes % (Auto) 20 % (10-50); Mean Corpuscular HGB Conc 32.3 g/dl (31.0-37.0); Mean Corpuscular Hemoglobin 30.5 pg (25.0-35.0); Mean Corpuscular Volume 94 fL (80-100); Monocytes # (Auto) 0.7 Thou/mm3 (0.0-0.8); Monocytes % (Auto) 7 % (0-12); Neutrophils # (Auto) 6.5 Thou/mm3 (1.8-7.7); Neutrophils % (Auto) 71 % (37-80); Nucleated Red Blood Cell # 0.00 Thou/mm3 (0.00-0.00); Nucleated Red Blood Cell % 0 /100 WBC (0); Platelet Count 187 Thou/mm3 (140-440); RDW Standard Deviation 45.7 fL (35.1-43.9); Red Blood Count 4.56 Miln/mm3 (4.50-5.90); White Blood Count 9.2 Thou/mm3 (3.8-10.6)
[2024-10-01 20:56] LABS: Alanine Aminotransferase 11 U/L (10-49); Albumin, Serum 4.4 gm/dL (3.4-4.8); Albumin/Globulin Ratio 1.5 (1.2-2.2); Alkaline Phosphatase 94 U/L (46-116); Anion Gap 8 (7-16); Aspartate Amino Transferase 12 U/L (0-34); BUN/Creatinine Ratio 13 Ratio (12-20); Bilirubin,Total 1.0 mg/dL (0.3-1.2); Blood Urea Nitrogen 29 mg/dL (9-23); Calcium 9.9 mg/dL (8.3-10.6); Calcium (Corrected) 9.9 mg/dL (8.5-10.1); Carbon Dioxide 26.1 mMol/L (20.0-31.0); Chloride 107 mMol/L (98-107); Creatinine (Component) 2.2 mg/dL (0.6-1.3); Estimated Creatinine Clearance 26.3 mL/min (>60); Globulin 3.0 gm/dL (2.3-3.5); Glucose 113 mg/dL (74-106); Osmolality,Calculated 288 (275-295); Potassium 5.1 mMol/L (3.4-5.1); Sodium 141 mMol/L (136-145); Total Protein 7.4 gm/dL (5.7-8.2); Troponin I 0.025 ng/mL (0.0-0.045); eGFR 31 See Note
[2024-10-01 21:32] LABS: Collection Type, Urine Voided
[2024-10-01 21:37] LABS: Bilirubin,Urine Negative (Negative); Blood,Urine Negative (Negative); Clarity,Urine Clear (Clear/Hazy); Color,Urine Yellow (Lt Yel-Yel); Glucose, Urine Trace (Negative); Hyaline Casts,Urine < 1 /hpf (0-1); Ketones,Urine Negative (Negative); Leukocyte Esterase,Urine Negative (Negative); Nitrite,Urine Negative (Negative); PH,Urine 6.0 (5.0-7.0); Protein,Urine 1+ (Neg - Trace); RBC,Urine 2 /hpf (0-3); Specific Gravity,Urine 1.020 (1.001-1.035); Squamous Epithelial Cell,Urine < 1 /hpf (0-5); Urobilinogen,Urine Negative mg/dL (0.0-1.0); WBC,Urine 5 /hpf (0-5)
[2024-10-01 22:09] VITALS: BP 115/62; PULSE 70; RESP 19; TEMP 36.6; O2SAT 96
== END 2024-10-01 23:07 | disposition home or self-care (01) ==
PROVIDERS: Emergency Provider Emergency Medicine; PCP Family Medicine
DX: E86.0 Dehydration (principal); R19.7 Diarrhea, unspecified; R11.2 Nausea with vomiting, unspecified; I44.0 Atrioventricular block, first degree; I45.10 Unspecified right bundle-branch block
CPT/HCPCS: 36415; 71045; 80053; 80307; 80320; 81001; 83605; 83690; 84484; 85025; 85610; 85730; 93005; 96360; 99283; J7030; G0480

== ENCOUNTER 2024-10-13 18:39 | Emergency (ER) | payer MEDICARE, MEDICAID, SELFPAY ==
[2024-10-13 18:40] VITALS: BMI 20.5
[2024-10-13 18:54] VITALS: BP 101/64; PULSE 80; RESP 20; TEMP 36.7; O2SAT 96
--- NOTE | 2024-10-13 19:13 | EDNOTE_ITS ---
ED Recheck Abnl Lab Rx-RME/HPI General Chief Complaint: General Adult/Misc Complain Stated Complaint: MD SENT TO GET KIDNEYS CHECKED Time Seen by Provider: 10/13/24 19:10 Source: patient Arrival date/time: 10/13/24 18:39 73-year-old male with no known medical history was sent to the emergency room by his lab for abnormal kidney function. Patient states he was told his creatinine is 5.0. Mode of arrival: ambulatory Limitations: no limitations Related Data Previous Rx's ?Medication ?Instructions ?Recorded docusate sodium 100 mg capsule 100 mg PO BID #60 caps 04/16/24 (Colace) hydrocodone 5 mg-acetaminophen 325 1 tab PO Q6H PRN pa in (scale score 04/16/24 mg tablet 7-10) #30 tabs ibuprofen 600 mg tablet 600 mg PO Q8H PRN pain (scal e 04/16/24 score 4-6) #15 tabs Allergies Allergy/AdvReac Type Severity Reaction Status Date / Time Penicillins Allergy Severe Rash Verified 10/13/24 18:41 Review of Systems Review of Systems Systems Reviewed: All systems reviewed, normal except as documented Constitutional Constitutional: Reports system reviewed and no additional complaints, except as documented, Denies fatigue, Denies fever(s), Denies headache(s) and Denies weakness Eyes Eyes: Reports system reviewed and no additional complaints, except as documented, Denies blurry vision and Denies change in vision ENT Ears, Nose, Mouth, and Throat: Reports system reviewed and no additional complaints, except as documented, Denies otalgia, Denies headache(s), Denies nasal congestion, Denies throat swelling and Denies vertigo Cardiovascular Cardiovascular: Reports system reviewed and no additional complaints, except as documented, Denies chest pain, Denies dyspnea and Denies dyspnea on exertion Respiratory Respiratory: Reports system reviewed and no additional complaints, except as documented, Denies chest congestion, Denies cough, Denies dyspnea, Denies dyspnea on exertion and Denies wheezing Gastrointestinal Gastrointestinal: Reports system reviewed and no additional complaints, except as documented, Denies abdominal pain, Denies cramping, Denies nausea and Denies vomiting Genitourinary Genitourinary: Reports system reviewed and no additional complaints, except as documented, Denies dysuria and Denies hematuria Musculoskeletal Musculoskeletal: Reports system reviewed and no additional complaints, except as documented and Denies back pain Integumentary/Breasts Skin/Breast: Reports system reviewed and no additional complaints, except as documented and Denies wounds Neurologic Neurologic: Reports system reviewed and no additional complaints, except as documented, Denies confusion, Denies headache(s), Denies lack of coordination, Denies vertigo and Denies weakness Psychiatric Psychiatric: Reports system reviewed and no additional complaints, except as documented, Denies anxiety, Denies confusion, Denies depression, Denies paranoia, Denies suicidal ideation and Denies tactile hallucinations Endocrine Endocrine: Reports system reviewed and no additional complaints, except as documented and Denies fatigue Hematologic/Lymphatic Hematologic/Lymphatic: Reports system reviewed and no additional complaints, except as documented and Denies lymphadenopathy Allergic/Immunologic Allergic/Immunologic: Reports system reviewed and no additional complaints, except as documented, Denies throat swelling, Denies urticaria and Denies wheez ing Past Medical History Past Medical History NEUROLOGIC: Negative Neurological Disorders or Seizures CARDIAC: Positive Cardiac Disorders and Hypertension; Negative Congestive Heart Failure RESPIRATORY: Negative Chronic Obstructive Pulmonary Disease (COPD) GASTROINTESTINAL: Negative Gastrointestinal Disorders or Hepatitis GENITOURINARY: Positive Inguinal Hernia; Negative Renal Disease MUSCULOSKELETAL: Positive Musculoskeletal Disorders, Arthritis and Fractures ENDOCRINE: Negative Endocrine Disorders, Diabetes Mellitus Type 1 or Diabetes Mellitus Type 2 HEMATOLOGIC: Negative Blood Disorders OTHER HISTORY: Positive Hospitalization, Chicken Pox, Measles and Mumps; Negative Autoimmune Disease, Shingles, Blood Transfusions, Blood Transfusion Reaction, Anesthesia Reactions or Cancer Family History FAMILY HISTORY: Positive Family Cancer; Negative Family Psychiatric Problems, Family Respiratory Disorders, Family Ca rdiac Disorders, Family Gastrointestinal Problems, Family Surgery or Family Anesthesia Reaction Surgical History SURGICAL: Positive Open Reduction Internal Fixation Social History SMOKING STATUS: Never smoker SUBSTANCE USE: does not use ED Exam General Limitations: Present no limitations General appearance: Present alert and in no apparent distress Head Head exam: Present atraumatic Eye Eye exam: Present normal appearance, PERRL and EOMI ENT ENT exam: Present normal exam, normal oropharynx and mucous membranes moist Neck Neck exam: Present normal inspection, full ROM and trachea midline Chest Chest inspection: Present normal inspection and symmetric chest wall rise Respiratory Respiratory exam: Present normal lung sounds bilaterally Cardiovascular Cardiovascular exam: Present regular rate, normal rhythm and normal heart sounds Abdominal Exam Abdominal exam: Present soft and normal bowel sounds; Absent distention, tenderness, guarding, rebound or rigidity Extremities Exam Extremities exam: Present normal inspection and full ROM Back Exam Back exam: Present normal inspection and full ROM Neurological Exam Neurological exam: Present alert, oriented X3 and CN II-XII intact Psychiatric Psychiatric exam: Present normal affect and normal mood Skin Skin exam: Present warm, dry, intact and normal color Course Quality Measures none Orders Category Date Time Status COVID-19 Screening Questionnaire NOW Care 10/13/24 20:39 Active Decision to Admit X1 Care 10/13/24 20:39 Active Consult to Nephrology Stat Cons 10/13/24 20:40 Ordered US renal BI Stat Exams 10/13/24 20:39 Ordered CBC Stat Lab 10/13/24 19:39 Completed CMP [Comprehensive Metabolic Panel] Stat Lab 10/13/24 19:39 Completed Lipase Stat Lab 10/13/24 19:39 Completed UA [Urinalysis] Stat Lab 10/13/24 19:12 Ordered Urine Culture Stat Lab 10/13/24 19:12 Ordered Sodium Chloride 0.9% 1000 ml [Ns] 1,000 ml Med 10/13/24 20:39 Active IV 999 mls/hr Vital Signs Vital signs: Vital Signs Temperature 98.0 F 10/13/24 18:54 Pulse Rate 80 10/13/24 18:54 Respiratory Rate 20 10/13/24 18:54 Blood Pressure 101/64 10/13/24 18:54 Pulse Oximetry (%) 96 10/13/24 18:54 Oxygen Delivery Method Room Air 10/13/24 18:54 Recheck / Abnormal Lab / Rx MDM Narrative MDM Narrative:: 73-year-old male with no known medical history was sent to the emergency room by his lab for abnormal kidney function. Patient states he was told his creatinine is 5.0. Patient is hemodynamically stable and in no apparent distress Physical examination shows a soft nontender abdomen. The patient denies any complaints and states he is here because he was called by the laboratory for an abnormal kidney function. CBC CMP were completed and his creatinine is 4.9, BUN 70 and GFR is 12. Patient was seen 2 weeks ago where his creatinine was 2.2. The certified phlebotomy technician on-call Dr. Deshpande was consulted and he would like a kidney ultrasound a liter of fluids and the patient admitted to the hospitalist group. Dr. Bailey with the hospitalist team was consulted and will admit the patient for acute kidney injury Patient data External records reviewed:: [facility] previous records Clinical information provided by:: patient Social determinants that could affect healthcare access:: none Patient has the following chronic illnesses:: No chronic illness How is presenting disease/condition affected by chronic disease/condition?: no chronic disease Evaluation data The following diagnostics were reviewed and interpreted by me:: lab results and radiology exam(s) Lab and/or radiology exams considered but not ordered:: Labs and radiology exams considered and ordered Interpretation Summary: N/A Medications / Prescriptions Medications or Prescriptions considered but not ordered:: Medication given Medication administrations:: Medication Administration History Sodium Chloride (Ns) 1,000 mls @ 999 mls/hr IV .Q1H1M ONE Stop: 10/13/24 21:39 Medication given Consultations Consultation(s) initiated? (list below): Yes Consultation #1 (Physician, Specialty, Details): Dr. Pa, certified phlebotomy technician on-call Time: 20:44 Diagnosis Recheck Differential Diagnosis: other (Acute kidney injury/electrolyte imbalance) Most likely diagnosis given after review of the tests above:: Acute kidney injury Admission Indicated Admission indicated?: indicated Admission Request Was there a request for admission?: Yes Admission Attestation Admission request attestation: Discussed case with [Dr. Bailey] from Hospitalist service regarding admission. Discussed patients ED course, exam findings, labs, and radiology results. The Hospitalist [agrees,declines] to accept the patient for admission. Disposition Plan Disposition Plan: Admit Discharge Plan Plan Patient Disposition: Admit Acute Care w/in Hospital Discharge Disposition comment: Stable Prescriptions/Referrals Prescriptions/Med Rec: No Action docusate sodium [Colace] 100 mg capsule 100 mg PO BID Qty: 60 0RF ibuprofen 600 mg tablet 600 mg PO Q8H PRN (Reason: pain (scale score 4-6)) Qty: 15 0RF hydrocodone-acetaminophen 5-325 mg tablet 1 tab PO Q6H MDD 4 PRN (Reason: pain (scale score 7-10)) Qty: 30 0RF Referrals: Brian Madrigal MD [Primary Care Provider] - In 1 week Problem List Clinical Impression: Acute kidney injury Patient/Caregiver Discharge Instructions Print Language: [place] Islander Stand Alone Forms: Sary Award Info., Patient Portal Info Letter
[2024-10-13 19:59] LABS: Basophils # (Auto) 0.1 Thou/mm3 (0.0-0.2); Basophils % (Auto) 1 % (0-2.5); Eosinophils # (Auto) 0.5 Thou/mm3 (0.0-0.5); Eosinophils % (Auto) 5 % (0-10); Hematocrit 42.5 % (41.0-53.0); Hemoglobin 14.4 g/dL (13.5-16.0); Immature Granulocytes Auto 0.03 Thou/mm3 (0.00-0.00); Lymphocytes # (Auto) 2.3 Thou/mm3 (1.0-4.8); Lymphocytes % (Auto) 26 % (10-50); Mean Corpuscular HGB Conc 33.9 g/dl (31.0-37.0); Mean Corpuscular Hemoglobin 31.3 pg (25.0-35.0); Mean Corpuscular Volume 92 fL (80-100); Monocytes # (Auto) 0.7 Thou/mm3 (0.0-0.8); Monocytes % (Auto) 7 % (0-12); Neutrophils # (Auto) 5.5 Thou/mm3 (1.8-7.7); Neutrophils % (Auto) 61 % (37-80); Nucleated Red Blood Cell # 0.00 Thou/mm3 (0.00-0.00); Nucleated Red Blood Cell % 0 /100 WBC (0); Platelet Count 211 Thou/mm3 (140-440); RDW Standard Deviation 45.2 fL (35.1-43.9); Red Blood Count 4.60 Miln/mm3 (4.50-5.90); White Blood Count 9.1 Thou/mm3 (3.8-10.6)
[2024-10-13 20:23] LABS: Alanine Aminotransferase 19 U/L (10-49); Albumin, Serum 4.4 gm/dL (3.4-4.8); Albumin/Globulin Ratio 1.6 (1.2-2.2); Alkaline Phosphatase 102 U/L (46-116); Anion Gap 13 (7-16); Aspartate Amino Transferase 22 U/L (0-34); BUN/Creatinine Ratio 14 Ratio (12-20); Bilirubin,Total 1.1 mg/dL (0.3-1.2); Blood Urea Nitrogen 70 mg/dL (9-23); Calcium 9.0 mg/dL (8.3-10.6); Calcium (Corrected) 9.0 mg/dL (8.5-10.1); Carbon Dioxide 20.5 mMol/L (20.0-31.0); Chloride 104 mMol/L (98-107); Creatinine (Component) 4.9 mg/dL (0.6-1.3); Estimated Creatinine Clearance 11.8 mL/min (>60); Globulin 2.8 gm/dL (2.3-3.5); Glucose 104 mg/dL (74-106); Lipase 42 U/L (12-53); Osmolality,Calculated 294 (275-295); Potassium 4.7 mMol/L (3.4-5.1); Sodium 137 mMol/L (136-145); Total Protein 7.2 gm/dL (5.7-8.2); eGFR 12 See Note
--- NOTE | 2024-10-13 21:02 | PC.NURSE ---
CALLED PT X 2 TO PUT TO ROOM, SECURITY INFORMED ME THAT PT LEFT ER AND WAS SEEN GETTING IN THE CAR.
--- NOTE | 2024-10-13 21:19 | PC.NURSE ---
NO ANSWER AT ER LOBBY OR OUTSIDE ER TO BE PUT TO ROOM.
--- NOTE | 2024-10-13 22:22 | PC.NURSE ---
TRIED TO CALL PT NUMBER AND LEFT MESSAGE, CALLED DAUGHTER PHONE BUT NO ANSWER.
--- NOTE | 2024-10-13 22:24 | PC.NURSE ---
ABLE TO CONTACT DAUGHTER, SHE SAID THAT THEY ARE CONVINCING HER FATHER TO COMEBACK.
--- NOTE | 2024-10-13 22:37 | PC.LAC ---
Pt NA as he was being called back for assigned room, fire extinguisher installer stated pt had left. LITERARY WRITER Fer made contact with pt and was explained extend of lab findings and admission necessary for treatment, pt;s daughter stated she would bring him back for further treatment. Per LITERARY WRITER Fer several attempts were made to reach family, but calls were not answered. Pt No showed to hospital. Admission team was made aware, will contact admission team if pt return in the near future.
--- NOTE | 2024-10-14 06:49 | PD.NEPHCONS ---
History of Present Illness Data of Consult Primary Care Provider: Brian Madrigal MD Consult Narrative History of present illness: ER called for consult for AMEENA advised to give IV hydration. Do kidney US admit to hospitalist Pt left hospital before I can see and evaluate. see me in my office soon cc:: cc: Meds Home Medications and Allergies Allergies Allergy/AdvReac Type Severity Reaction Status Date / Time Penicillins Allergy Severe Rash Verified 10/13/24 18:41 Exam Vital Signs Temp Pulse Resp BP Pulse Ox O2 Del Method 98.0 F 80 20 101/64 96 Room Air 10/13/24 18:54 10/13/24 18:54 10/13/24 18:54 10/13/24 18:54 10/13/24 18:54 10/13/24 18:54 Results Labs 10/13/24 19:39 10/13/24 19:39 Labs: Short CBC 10/13/24 Range/Units 19:39 WBC 9.1 (3.8-10.6) Thou/mm3 Hgb 14.4 (13.5-16.0) g/dL Hct 42.5 (41.0-53.0) % Plt Count 211 (140-440) Thou/mm3 BMP 10/13/24 19:39 Sodium 137 Potassium 4.7 Chloride 104 Carbon Dioxide 20.5 BUN 70 H Creatinine 4.9 H* Glucose 104 Calcium 9.0 Liver Function 10/13/24 Range/Units 19:39 Total Bilirubin 1.1 (0.3-1.2) mg/dL AST 22 (0-34) U/L ALT 19 (10-49) U/L Alkaline Phosphatase 102 (46-116) U/L Albumin 4.4 (3.4-4.8) gm/dL
== END 2024-10-13 22:44 | disposition left against medical advice (07) ==
PROVIDERS: Nurse Practitioner Family; Emergency Provider Emergency Medicine; PCP Family Medicine
DX: N17.9 Acute kidney failure, unspecified (principal)
CPT/HCPCS: 36415; 80053; 81001; 83690; 85025; 87086; 99284

== ENCOUNTER → 2024-10-13 | Outpatient (CLI) | payer MEDICARE, MEDICAID, SELFPAY ==
[2024-10-13 17:03] LABS: Alanine Aminotransferase 21 U/L (10-49); Albumin, Serum 4.3 gm/dL (3.4-4.8); Albumin/Globulin Ratio 1.7 (1.2-2.2); Alkaline Phosphatase 105 U/L (46-116); Amylase 72 U/L (30-118); Anion Gap 11 (7-16); Aspartate Amino Transferase 22 U/L (0-34); BUN/Creatinine Ratio 17 Ratio (12-20); Bilirubin,Total 1.0 mg/dL (0.3-1.2); Blood Urea Nitrogen 83 mg/dL (9-23); Calcium 8.9 mg/dL (8.3-10.6); Calcium (Corrected) 8.9 mg/dL (8.5-10.1); Carbon Dioxide 20.2 mMol/L (20.0-31.0); Chloride 107 mMol/L (98-107); Creatinine (Component) 5.0 mg/dL (0.6-1.3); Globulin 2.6 gm/dL (2.3-3.5); Glucose 104 mg/dL (74-106); Lipase 40 U/L (12-53); Osmolality,Calculated 300 (275-295); Potassium 5.1 mMol/L (3.4-5.1); Sodium 138 mMol/L (136-145); Total Protein 6.9 gm/dL (5.7-8.2); eGFR 12 See Note
[2024-10-19 06:50] LABS: Gamma Glutamyl Transpeptidase* 9 U/L (3-70)
== END | disposition home or self-care (01) ==
PROVIDERS: PCP Family Medicine; Referring Provider Student in an Organized Health Care Education/Training Program; Visit Provider Student in an Organized Health Care Education/Training Program
DX: R10.9 Unspecified abdominal pain (principal)
CPT/HCPCS: 36415; 80053; 82150; 82977; 83690

== ENCOUNTER 2024-10-15 11:17 | Emergency (ER) | payer MEDICARE, MEDICAID, SELFPAY ==
--- NOTE | 2024-10-15 11:27 | EKG_ITS ---
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
--- NOTE | 2024-10-15 11:27 | XR_ITS ---
Examination: AP chest single view Technique one AP portable semiupright chest single view Date and time: October 15, 2024 at 1208 hours INDICATIONS: Chest pain beginning 2 days ago. FINDINGS: Normal heart size Ectatic thoracic aorta. Minor scarring in the right upper lobe. No pneumonia or pulmonary edema. Prominent osteopenia. Advanced osteoarthritis right glenohumeral joint Impression: No pneumonia or pulmonary edema
[2024-10-15 11:30] VITALS: BP 86/61; PULSE 80; RESP 18; TEMP 37; O2SAT 95; BMI 22.8
--- NOTE | 2024-10-15 11:50 | EDNOTE_ITS ---
ED General RME/HPI General Chief complaint: Recheck/Abnormal Lab/Rx Stated complaint: Lightheaded, dizzy, kidney function is down Time Seen by Provider: 10/15/24 11:44 Arrival date/time: 10/15/24 11:17 RME / HPI RME / HPI narrative: DR. NELSON MAIN ED EVALUATION: 73-year-old male here for evaluation of lightheadedness, fatigue, feeling just a bit short of breath that has been ongoing for the past week approximately. Also has been having abdominal cramping ongoing for the past month approximately. Had been seen by his PCP several days ago, had labs done, these were abnormal, told to come to the emergency department for evaluation. Did present that night and apparently was supposed to be admitted but due to a miscommunication, patient ended up leaving. Patient was called by ED per report and told to come back to department as he was to be admitted. Denies other acute symptoms at this time. Related Data Previous Rx's ?Medication ?Instructions ?Recorded docusate sodium 100 mg capsule 100 mg PO BID #60 caps 04/16/24 (Colace) hydrocodone 5 mg-acetaminophen 325 1 tab PO Q6H PRN pa in (scale score 04/16/24 mg tablet 7-10) #30 tabs ibuprofen 600 mg tablet 600 mg PO Q8H PRN pain (scal e 04/16/24 score 4-6) #15 tabs Allergies Allergy/AdvReac Type Severity Reaction Status Date / Time Penicillins Allergy Severe Rash Verified 10/15/24 11:23 Review of Systems Review of Systems Systems Reviewed: All systems reviewed, normal except as documented Past Medical History Past Medical History CARDIAC: Positive Cardiac Disorders and Hypertension GENITOURINARY: Positive Inguinal Hernia MUSCULOSKELETAL: Positive Musculoskeletal Disorders, Arthritis and Fractures OTHER HISTORY: Positive Hospitalization, Chicken Pox, Measles and Mumps Family History FAMILY HISTORY: Positive Family Cancer Surgical History SURGICAL: Positive Open Reduction Internal Fixation Social History SMOKING STATUS: Never smoker SUBSTANCE USE: does not use ED Exam Narrative Physical exam: Constitutional: Awake, alert, nontoxic, no acute distress HEENT: Normocephalic, atraumatic, extraocular movements intact. Neck: Supple CV: Regular rate and rhythm Lungs: Clear to auscultation BL, no respiratory distress. Abd: Soft, NT, ND, no HSM noted to palpation Extremities: No deformities, no edema noted to bilateral lower extremities Neuro: no acute neuro deficit noted. Skin: Warm, dry, intact Course Course Course Narrative: 1405h: Patient's labs reviewed. Renal function noted to be significantly improved from the past few days. Creatinine was up to 5 several days ago, has come down to 2.7. BUN was 49. Blood pressure is a bit low in the high 80s systolic. IV fluids ordered. Chest x-ray completed shows no acute process. 1530: Laboratory results reviewed. Renal function has improved compared to prior labs: BUN decreased from 70 on 10/13/24 to 49 today, creatinine improved from 4.9 to 2.7, and eGFR improved from 12 to 24. Despite this, patient?s blood pressure is currently 89/64. Plan is to administer 1 liter of IV fluids and reassess. If blood pressure stabilizes following IV fluids, patient may be discharged with close outpatient follow-up. Patient with stable blood pressure after IV fluids. Believe patient is stable for discharge home at this time. Recommended increase p.o. fluids at home. Will need to follow-up with nephrology outpatient. Stable for discharge at this time Quality Measures none Orders Category Date Time Status EKG (ED ONLY) *Do not use* NOW Care 10/15/24 11:27 Completed EKG (ED Only) Stat Exams 10/15/24 11:27 Draft XR chest 2V Stat Exams 10/15/24 11:27 Completed B-Type Natriuretic Peptide Stat Lab 10/15/24 11:58 Completed CBC Stat Lab 10/15/24 11:58 Completed Comprehensive Metabolic Panel Stat Lab 10/15/24 11:58 Completed HIV (1&2) Antibody Rapid Stat Lab 10/15/24 11:58 Completed Hepatitis Acute Panel Stat Lab 10/15/24 11:58 Completed Magnesium Stat Lab 10/15/24 11:58 Completed Partial Thromboplastin Time Stat Lab 10/15/24 11:58 Completed Prothrombin Time with INR Stat Lab 10/15/24 11:58 Completed Troponin I Stat Lab 10/15/24 11:58 Completed Urinalysis Stat Lab 10/15/24 15:14 Completed Sodium Chloride 0.9% 1000 ml [Ns] 1,000 ml Med 10/15/24 14:04 Discontinued IV 999 mls/hr Vital Signs Vital signs: Vital Signs Temperature 98.6 F 10/15/24 11:30 Pulse Rate 80 10/15/24 11:30 Respiratory Rate 18 10/15/24 11:30 Blood Pressure 86/61 L 10/15/24 11:30 Pulse Oximetry (%) 95 10/15/24 11:30 Oxygen Delivery Method Room Air 10/15/24 11:30 Discharge Plan Plan Patient Disposition: HOME (Self Care) Patient condition on transfer: Stable Prescriptions/Referrals Prescriptions/Med Rec: No Action docusate sodium [Colace] 100 mg capsule 100 mg PO BID Qty: 60 0RF ibuprofen 600 mg tablet 600 mg PO Q8H PRN (Reason: pain (scale score 4-6)) Qty: 15 0RF hydrocodone-acetaminophen 5-325 mg tablet 1 tab PO Q6H MDD 4 PRN (Reason: pain (scale score 7-10)) Qty: 30 0RF Referrals: Kunal Pa MD [Physician] - In 1 week No Primary/Family,Physician [Primary Care Provider] - In 1 week Problem List Clinical Impression: Acute kidney injury, Dehydration Patient/Caregiver Discharge Instructions Diet Instructions: Ensure that you are drinking enough fluids daily to remain well-hydrated. Education Materials: Dehydration, Acute Kidney Failure Dc Print Language: Salvadorean Stand Alone Forms: Digital Folio Award Info., Patient Portal Info Letter MDM Narrative [facility] hospital course: I, Lena Lindsey, am scribing for and in the presence of Dr. Nelson. Clinical Information Provided by patient Medical Records Reviewed [facility] Meds/Rx Considered, not Ordered None Labs/Rad/Tests considered, not Ordered None Chronic Illness/Social Conditions Add or document further as needed: Hypertension EKG EKG Interpretation narrative: My interpretation: EKG performed at 1132 hours, sinus rhythm, rate 84, right bundle branch block, no STEMI Lab Interpretation Labs: see narrative above Imaging Radiology reports / interpretation(s): Procedure(s): XR chest 2V Accession Number(s): [id number] cc: Shay (MAURY),José Miguel MENDIOLA; Cristobal Swanson MD; NO PRIMARY/FAMILY,PHYSICIAN~ Examination: AP chest single view Technique one AP portable semiupright chest single view Date and time: October 15, 2024 at 1208 hours INDICATIONS: Chest pain beginning 2 days ago. FINDINGS: Normal heart size Ectatic thoracic aorta. Minor scarring in the right upper lobe. No pneumonia or pulmonary edema. Prominent osteopenia. Advanced osteoarthritis right glenohumeral joint Impression: No pneumonia or pulmonary edema Dictated By: Cristobal Swanson MD Medication Administration(s) Medication Administration History Discontinued Medications Sodium Chloride (Ns) 1,000 mls @ 999 mls/hr IV .Q1H1M ONE Stop: 10/15/24 15:04 Last Infusion: 10/15/24 15:14 Dose: Infused Documented By: Admin: 10/15/24 14:26 Dose: 999 mls/hr Documented By: LISSA Diagnosis Differential diagnosis: anemia, electrolyte abnormality, cardiac arrhythmia, intra-abdominal pain Most likely dx, and/or detailed dx discussion: Acute kidney injury Dehydration Dispositon Disposition: Discharge Home
[2024-10-15 12:20] LABS: Basophils # (Auto) 0.0 Thou/mm3 (0.0-0.2); Basophils % (Auto) 0 % (0-2.5); Eosinophils # (Auto) 0.5 Thou/mm3 (0.0-0.5); Eosinophils % (Auto) 6 % (0-10); Hematocrit 40.9 % (41.0-53.0); Hemoglobin 13.5 g/dL (13.5-16.0); Immature Granulocytes Auto 0.03 Thou/mm3 (0.00-0.00); Lymphocytes # (Auto) 1.4 Thou/mm3 (1.0-4.8); Lymphocytes % (Auto) 18 % (10-50); Mean Corpuscular HGB Conc 33.0 g/dl (31.0-37.0); Mean Corpuscular Hemoglobin 30.8 pg (25.0-35.0); Mean Corpuscular Volume 93 fL (80-100); Monocytes # (Auto) 0.7 Thou/mm3 (0.0-0.8); Monocytes % (Auto) 9 % (0-12); Neutrophils # (Auto) 5.4 Thou/mm3 (1.8-7.7); Neutrophils % (Auto) 66 % (37-80); Nucleated Red Blood Cell # 0.00 Thou/mm3 (0.00-0.00); Nucleated Red Blood Cell % 0 /100 WBC (0); Platelet Count 191 Thou/mm3 (140-440); RDW Standard Deviation 45.4 fL (35.1-43.9); Red Blood Count 4.38 Miln/mm3 (4.50-5.90); White Blood Count 8.1 Thou/mm3 (3.8-10.6)
[2024-10-15 12:26] VITALS: BP 89/64; PULSE 63; RESP 20; TEMP 36.6; O2SAT 97
[2024-10-15 12:36] LABS: INR 1.2 (0.9-1.3); Partial Thromboplastin Time 29.2 Seconds (22.0-36.0); Prothrombin Time 12.9 Seconds (9.0-12.2)
[2024-10-15 12:38] LABS: B-Type Natriuretic Peptide 86 pg/mL (0-100)
[2024-10-15 12:44] LABS: HIV (1&2) Antibody Rapid Non-Reactive
[2024-10-15 13:05] LABS: Alanine Aminotransferase 18 U/L (10-49); Albumin, Serum 4.0 gm/dL (3.4-4.8); Albumin/Globulin Ratio 1.4 (1.2-2.2); Alkaline Phosphatase 89 U/L (46-116); Anion Gap 10 (7-16); Aspartate Amino Transferase 18 U/L (0-34); BUN/Creatinine Ratio 18 Ratio (12-20); Bilirubin,Total 0.9 mg/dL (0.3-1.2); Blood Urea Nitrogen 49 mg/dL (9-23); Calcium 9.2 mg/dL (8.3-10.6); Calcium (Corrected) 9.2 mg/dL (8.5-10.1); Carbon Dioxide 20.8 mMol/L (20.0-31.0); Chloride 110 mMol/L (98-107); Creatinine (Component) 2.7 mg/dL (0.6-1.3); Estimated Creatinine Clearance 23.8 mL/min (>60); Globulin 2.8 gm/dL (2.3-3.5); Glucose 108 mg/dL (74-106); Magnesium 1.8 mg/dL (1.6-2.6); Osmolality,Calculated 295 (275-295); Potassium 4.7 mMol/L (3.4-5.1); Sodium 141 mMol/L (136-145); Total Protein 6.8 gm/dL (5.7-8.2); Troponin I 0.029 ng/mL (0.0-0.045); eGFR 24 See Note
[2024-10-15 14:16] LABS: Hepatitis A Antibody IgM Non Reactive (Non React); Hepatitis B Core Antibody IgM Non Reactive (Non React); Hepatitis B Surface Antigen Non Reactive (Non React); Hepatitis C Antibody Non Reactive (Non React)
[2024-10-15] MEDS: SODIUM CHLORIDE 0.9% 1000 ML 1,000 ML 999 ML IV (14:26)
[2024-10-15 15:25] VITALS: BP 125/88; PULSE 62; RESP 16; TEMP 36.7; O2SAT 95
[2024-10-15 15:28] LABS: Collection Type, Urine Clean Catch
[2024-10-15 15:48] LABS: Bilirubin,Urine Negative (Negative); Blood,Urine Trace (Negative); Clarity,Urine Clear (Clear/Hazy); Color,Urine Lt-Yellow (Lt Yel-Yel); Glucose, Urine 1+ (Negative); Hyaline Casts,Urine < 1 /hpf (0-1); Ketones,Urine Negative (Negative); Leukocyte Esterase,Urine Negative (Negative); Nitrite,Urine Negative (Negative); PH,Urine 6.0 (5.0-7.0); Protein,Urine Trace (Neg - Trace); RBC,Urine < 1 /hpf (0-3); Specific Gravity,Urine 1.019 (1.001-1.035); Squamous Epithelial Cell,Urine < 1 /hpf (0-5); Urobilinogen,Urine Negative mg/dL (0.0-1.0); WBC,Urine < 1 /hpf (0-5)
[2024-10-15 17:28] VITALS: BP 121/79; PULSE 65; RESP 16; TEMP 36.7; O2SAT 97
== END 2024-10-15 17:29 | disposition home or self-care (01) ==
PROVIDERS: Nurse Practitioner Primary Care; Emergency Provider Family Medicine
DX: N17.9 Acute kidney failure, unspecified (principal); E86.0 Dehydration
CPT/HCPCS: 36415; 71046; 80053; 80074; 81001; 83735; 83880; 84484; 85025; 85610; 85730; 86703; 93005; 96360; 99284; J7030

== ENCOUNTER → 2024-10-30 | Outpatient (CLI) | payer MEDICARE, MEDICAID, SELFPAY ==
--- NOTE | 2024-10-30 13:37 | XR_ITS ---
Examination: Retroperitoneal ultrasound, complete Technique: Multiple high resolution grayscale images of the retroperitoneum obtained, including kidneys and bladder. Exam date and time:October 30, 2024 1355 hours INDICATIONS: Acute renal insufficiency on laboratory examination this week. FINDINGS: Right kidney 8.1 cm cortex 1.1 cm Left kidney 10.0 cm cortex 1.6 cm Severe bilateral renal parenchymal scar formation, no hydronephrosis Contracted urinary bladder Prostate 2.7 x 2.5 x 3.1 cm no prostate nodules IMPRESSION: Small kidneys with bilateral renal cortical thinning Severe bilateral renal parenchymal scar formation
[2024-10-30 13:44] LABS: Collection Type, Urine Clean Catch
[2024-10-30 14:11] LABS: Basophils # (Auto) 0.1 Thou/mm3 (0.0-0.2); Basophils % (Auto) 1 % (0-2.5); Eosinophils # (Auto) 0.9 Thou/mm3 (0.0-0.5); Eosinophils % (Auto) 11 % (0-10); Hematocrit 41.2 % (41.0-53.0); Hemoglobin 14.0 g/dL (13.5-16.0); Immature Granulocytes Auto 0.02 Thou/mm3 (0.00-0.00); Lymphocytes # (Auto) 2.0 Thou/mm3 (1.0-4.8); Lymphocytes % (Auto) 25 % (10-50); Mean Corpuscular HGB Conc 34.0 g/dl (31.0-37.0); Mean Corpuscular Hemoglobin 31.8 pg (25.0-35.0); Mean Corpuscular Volume 94 fL (80-100); Monocytes # (Auto) 0.6 Thou/mm3 (0.0-0.8); Monocytes % (Auto) 7 % (0-12); Neutrophils # (Auto) 4.4 Thou/mm3 (1.8-7.7); Neutrophils % (Auto) 56 % (37-80); Nucleated Red Blood Cell # 0.00 Thou/mm3 (0.00-0.00); Nucleated Red Blood Cell % 0 /100 WBC (0); Parathyroid Hormone Intact 132.2 pg/ml (18.5-88.0); Platelet Count 194 Thou/mm3 (140-440); RDW Standard Deviation 44.9 fL (35.1-43.9); Red Blood Count 4.40 Miln/mm3 (4.50-5.90); White Blood Count 7.9 Thou/mm3 (3.8-10.6)
[2024-10-30 14:13] LABS: Albumin, Serum 4.2 gm/dL (3.4-4.8); Anion Gap 9 (7-16); BUN/Creatinine Ratio 26 Ratio (12-20); Blood Urea Nitrogen 49 mg/dL (9-23); Calcium 10.0 mg/dL (8.3-10.6); Calcium (Corrected) 10.0 mg/dL (8.5-10.1); Carbon Dioxide 27.5 mMol/L (20.0-31.0); Chloride 104 mMol/L (98-107); Creatinine (Component) 1.9 mg/dL (0.6-1.3); Glucose 99 mg/dL (74-106); Osmolality,Calculated 292 (275-295); Phosphorous 3.6 mg/dL (2.4-5.1); Potassium 5.2 mMol/L (3.4-5.1); Sodium 140 mMol/L (136-145); eGFR 37 See Note
[2024-10-30 14:27] LABS: Bilirubin,Urine Negative (Negative); Blood,Urine Negative (Negative); Clarity,Urine Clear (Clear/Hazy); Color,Urine Lt-Yellow (Lt Yel-Yel); Glucose, Urine Trace (Negative); Ketones,Urine Negative (Negative); Leukocyte Esterase,Urine Negative (Negative); Nitrite,Urine Negative (Negative); PH,Urine 6.5 (5.0-7.0); Protein,Urine Negative (Neg - Trace); RBC,Urine 1 /hpf (0-3); Specific Gravity,Urine 1.017 (1.001-1.035); Squamous Epithelial Cell,Urine < 1 /hpf (0-5); Urobilinogen,Urine Negative mg/dL (0.0-1.0); WBC,Urine 1 /hpf (0-5)
== END | disposition home or self-care (01) ==
LOC: CDIM 12:48 → COPL 12:53
PROVIDERS: PCP Internal Medicine; Referring Provider Internal Medicine; Visit Provider Radiology Diagnostic Radiology
DX: N27.1 Small kidney, bilateral (principal); N28.89 Other specified disorders of kidney and ureter; N17.9 Acute kidney failure, unspecified; I10 Essential (primary) hypertension
CPT/HCPCS: 36415; 76770; 80069; 81001; 83970; 85025

== ENCOUNTER 2025-01-01 22:32 | Emergency (ER) | payer OTHER, MEDICAID, SELFPAY ==
[2025-01-01 22:34] VITALS: PULSE 61; RESP 18; O2SAT 100; BMI 21.9
[2025-01-01 22:42] VITALS: BP 119/69; PULSE 63; RESP 15; TEMP 36.4; O2SAT 95
--- NOTE | 2025-01-01 22:53 | PD.EDWEAK ---
ED Weakness RME/HPI General Chief complaint: Weakness Stated complaint: WEAKNESS Time Seen by Provider: 01/01/25 22:45 Arrival date/time: 01/01/25 22:32 RME / HPI RME / HPI Narrative: DR. ORELLANA MAIN ED EVALUATION: 74 y/o male BIBA from home presents to ED c/o weakness s/p no food for 1.5 days and no water for 2 days. Reports difficulty ambulating due to weakness. Does admit to feeling depressed, but denies any SI. Also denies any pain. Current blood sugar is 88 mg/dL. Patient currently lives with ex-. Related Data Previous Rx's ?Medication ?Instructions ?Recorded docusate sodium 100 mg capsule 100 mg PO BID #60 caps 04/16/24 (Colace) hydrocodone 5 mg-acetaminophen 325 1 tab PO Q6H PRN pain (scale score 04/16/24 mg tablet 7-10) #30 tabs ibuprofen 600 mg tablet 600 mg PO Q8H PRN pain (scale 04/16/24 score 4-6) #15 tabs Allergies Allergy/AdvReac Type Severity Reaction Status Date / Time Penicillins Allergy Severe Rash Verified 10/15/24 11:23 Review of Systems Review of Systems Systems Reviewed: All systems reviewed, normal except as documented Past Medical History Past Medical History CARDIAC: Positive Hypertension GENITOURINARY: Positive Inguinal Hernia MUSCULOSKELETAL: Positive Arthritis and Fractures OTHER HISTORY: Positive Hospitalization, Chicken Pox, Measles and Mumps Family History FAMILY HISTORY: Positive Family Cancer Surgical History SURGICAL: Positive Open Reduction Internal Fixation ED Exam Narrative Physical exam: Generally patient is alert and in no obvious distress, heart regular rate and rhythm, lungs clear to auscultation equal bilaterally, abdomen soft bowel sounds present nondistended nontender, skin is warm pale and dry, neurologic exam shows the patient have a Carly Coma Scale of 15 without focal motor deficits. Extremities show no edema. Course Quality Measures none Orders Category Date Time Status Bedside Blood Glucose NOW Care 01/01/25 22:58 Active EKG (ED ONLY) *Do not use* NOW Care 01/01/25 22:54 Completed Insert IV NOW Care 01/01/25 22:57 Active EKG (ED Only) Stat Exams 01/01/25 22:54 Draft XR chest 1V portable Stat Exams 01/01/25 22:54 Completed Alcohol, Blood Medical Stat Lab 01/01/25 23:20 Completed BNP [B-Type Natriuretic Peptide] Stat Lab 01/01/25 23:20 Completed CBC Stat Lab 01/01/25 23:20 Completed CMP [Comprehensive Metabolic Panel] Stat Lab 01/01/25 23:20 Completed Lipase Stat Lab 01/01/25 23:20 Completed Magnesium Stat Lab 01/01/25 23:20 Completed Troponin I Stat Lab 01/01/25 23:20 Completed Troponin I Stat Lab 01/02/25 01:23 Completed UA [Urinalysis] Stat Lab 01/01/25 00:25 Completed Vital Signs Vital signs: Vital Signs Temperature 97.6 F 01/01/25 22:42 Pulse Rate 63 01/01/25 22:42 Respiratory Rate 15 01/01/25 22:42 Blood Pressure 119/69 01/01/25 22:42 Pulse Oximetry (%) 95 01/01/25 22:42 Weakness MDM Narrative MDM Narrative:: Scribe Attestation: Giulia Ramirez am scribing for and in the presence of Dr. Orellana. Provider Notation: Although this document has been carefully reviewed, there may still be some phonetic and other typographical errors. These errors are purely grammatical due to imperfections in the software program and should not be construed in any way to compromise the substance of the patient's medical care during this visit. Patient was hydrated with a liter normal saline. He was given food to eat. BUN and creatinine were 40 and 2.0. Potassium was normal. Urine was not infected. Cardiac workup showed an original troponin of 0.064 but a 2-hour later troponin was 0.062. Patient denies any chest pain pressure tightness or heaviness. He lives at home and wishes to go home. Patient will be discharged in stable condition. EKG done at 11:21 PM shows normal sinus rhythm at a rate of 82 with a first-degree AV block and a right bundle branch block. There were frequent supraventricular premature complexes. No ST segment changes. Patient data External records reviewed:: [facility] previous records (Reviewed prior ED records from 10/15/24. Patient was seen for Acute kidney injury.) and EMS form Clinical information provided by:: patient, EMS and law enforcement Social determinants that could affect healthcare access:: mental health (Depression) Patient has the following chronic illnesses:: Hypertension, Inguinal Hernia, Arthritis and Fractures How is presenting disease/condition affected by chronic disease/condition?: exacerbated by Evaluation data The following diagnostics were reviewed and interpreted by me:: lab results and EKG tracing(s) Lab and/or radiology exams considered but not ordered:: None Interpretation Summary: RADIOLOGY Chest X-Ray: FINDINGS: Normal heart size Ectatic enlarged thoracic aorta. No lobar pneumonia or pulmonary edema Moderate osteopenia Minor blunting of the left lateral costophrenic angle IMPRESSION: No pneumonia or pulmonary edema Medications / Prescriptions Medications or Prescriptions considered but not ordered:: None Medication administrations:: See above if any Consultations Consultation(s) initiated? (list below): No Diagnosis Weakness Differential Diagnosis: anemia, hypoglycemia, rhabdomyolysis and dehydration Most likely diagnosis given after review of the tests above:: None Admission Indicated Admission indicated?: not indicated Explain why admission is indicated or not indicated:: Patient does not meet admission criteria Admission Request Was there a request for admission?: No Disposition Plan Disposition Plan: Discharge Discharge Attestation Discharge Attestation: The patient and all family members were given an opportunity to ask questions and understood the discharge instructions. Discharge instructions specifically effects, indications for sooner follow up or return to the emergency department, and the expected course of current diagnosis. Patient condition: Stable Discharge Plan Plan Patient Disposition: HOME (Self Care) Prescriptions/Referrals Prescriptions/Med Rec: No Action docusate sodium [Colace] 100 mg capsule 100 mg PO BID Qty: 60 0RF ibuprofen 600 mg tablet 600 mg PO Q8H PRN (Reason: pain (scale score 4-6)) Qty: 15 0RF hydrocodone-acetaminophen 5-325 mg tablet 1 tab PO Q6H MDD 4 PRN (Reason: pain (scale score 7-10)) Qty: 30 0RF Referrals: Ambrose Madrigal MD [Primary Care Provider, Family Practice] - In 1 week Problem List Clinical Impression: Weakness Patient/Caregiver Discharge Instructions Education Materials: ED Weakness (Uncertain Cause) Additional Instructions: Eat regular meals and keep well-hydrated. Follow-up with your doctor. Return to ER as needed or if condition worsens. Print Language: Kyrgyz Stand Alone Forms: Sary Award Info., Patient Portal Info Letter
--- NOTE | 2025-01-01 22:54 | EKG_ITS ---
[facility] Test Date: 2025-01-01 Pat Name: RAVI BABCOCK Department: Room: - Gender: Male [employer]: : 1950 Requested By: Hakeem Gonzalez Order Number: [id number] Reading MD: Hakeem Gonzalez Measurements Intervals Elizabeth Rate: 82 P: 46 AL: 240 QRS: -7 QRSD: 150 T: 37 QT: 405 QTc: 476 Interpretive Statements SINUS RHYTHM WITH FIRST DEGREE AV BLOCK WITH FREQUENT SUPRAVENTRICULAR PREMATURE COMPLEXES RIGHT BUNDLE BRANCH BLOCK [120+ ms QRS DURATION, UPRIGHT V1, 40+ ms S IN I/aVL/V4/V5/V6] POSSIBLE SEPTAL MYOCARDIAL INFARCTION , OF INDETERMINATE AGE [30 ms Q WAVE IN V1/V2] Compared to ECG 10/15/2024 11:32:16 No significant changes /store/S0/[id number].pdf
--- NOTE | 2025-01-01 22:54 | XR_ITS ---
EXAMINATION: AP chest single view TECHNIQUE: AP portable upright chest single view Date and time: January 01, 2025, 1106 hours INDICATION: Shortness of breath and weakness today FINDINGS: Normal heart size Ectatic enlarged thoracic aorta. No lobar pneumonia or pulmonary edema Moderate osteopenia Minor blunting of the left lateral costophrenic angle IMPRESSION: No pneumonia or pulmonary edema
[2025-01-01 23:33] LABS: Basophils # (Auto) 0.1 Thou/mm3 (0.0-0.2); Basophils % (Auto) 1 % (0-2.5); Eosinophils # (Auto) 0.3 Thou/mm3 (0.0-0.5); Eosinophils % (Auto) 2 % (0-10); Hematocrit 45.4 % (41.0-53.0); Hemoglobin 15.4 g/dL (13.5-16.0); Immature Granulocytes Auto 0.06 Thou/mm3 (0.00-0.00); Lymphocytes # (Auto) 1.7 Thou/mm3 (1.0-4.8); Lymphocytes % (Auto) 12 % (10-50); Mean Corpuscular HGB Conc 33.9 g/dl (31.0-37.0); Mean Corpuscular Hemoglobin 31.0 pg (25.0-35.0); Mean Corpuscular Volume 91 fL (80-100); Monocytes # (Auto) 0.9 Thou/mm3 (0.0-0.8); Monocytes % (Auto) 7 % (0-12); Neutrophils # (Auto) 11.2 Thou/mm3 (1.8-7.7); Neutrophils % (Auto) 79 % (37-80); Nucleated Red Blood Cell # 0.00 Thou/mm3 (0.00-0.00); Nucleated Red Blood Cell % 0 /100 WBC (0); Platelet Count 230 Thou/mm3 (140-440); RDW Standard Deviation 43.8 fL (35.1-43.9); Red Blood Count 4.97 Miln/mm3 (4.50-5.90); White Blood Count 14.2 Thou/mm3 (3.8-10.6)
[2025-01-01 23:39] VITALS: PULSE 93; RESP 17; O2SAT 99
[2025-01-01 23:51] LABS: B-Type Natriuretic Peptide 78 pg/mL (0-100)
[2025-01-01 23:52] VITALS: BP 127/90; TEMP 36.1
[2025-01-01 23:55] LABS: Alanine Aminotransferase 37 U/L (10-49); Albumin, Serum 4.5 gm/dL (3.4-4.8); Albumin/Globulin Ratio 1.7 (1.2-2.2); Alcohol, Blood Medical < 3.0 mg/dL (0-10.0); Alkaline Phosphatase 81 U/L (46-116); Anion Gap 15 (7-16); Aspartate Amino Transferase 65 U/L (0-34); BUN/Creatinine Ratio 21 Ratio (12-20); Bilirubin,Total 1.4 mg/dL (0.3-1.2); Blood Urea Nitrogen 42 mg/dL (9-23); Calcium 9.5 mg/dL (8.3-10.6); Calcium (Corrected) 9.5 mg/dL (8.5-10.1); Carbon Dioxide 19.7 mMol/L (20.0-31.0); Chloride 109 mMol/L (98-107); Creatinine (Component) 2.0 mg/dL (0.6-1.3); Estimated Creatinine Clearance 29.5 mL/min (>60); Globulin 2.7 gm/dL (2.3-3.5); Glucose 98 mg/dL (74-106); Lipase 27 U/L (12-53); Magnesium 2.5 mg/dL (1.6-2.6); Osmolality,Calculated 297 (275-295); Potassium 4.7 mMol/L (3.4-5.1); Sodium 144 mMol/L (136-145); Total Protein 7.2 gm/dL (5.7-8.2); eGFR 35 See Note
[2025-01-02] LABS: Troponin I 0.064 ng/mL (0.0-0.045)
[2025-01-02 00:34] LABS: Collection Type, Urine Voided
[2025-01-02 00:41] LABS: Bilirubin,Urine Negative (Negative); Blood,Urine 2+ (Negative); Clarity,Urine Clear (Clear/Hazy); Color,Urine Yellow (Lt Yel-Yel); Glucose, Urine Negative (Negative); Hyaline Casts,Urine < 1 /hpf (0-1); Ketones,Urine 1+ (Negative); Leukocyte Esterase,Urine Negative (Negative); Nitrite,Urine Negative (Negative); PH,Urine 5.5 (5.0-7.0); Protein,Urine 1+ (Neg - Trace); RBC,Urine 3 /hpf (0-3); Specific Gravity,Urine 1.026 (1.001-1.035); Squamous Epithelial Cell,Urine < 1 /hpf (0-5); Urobilinogen,Urine 2.0 mg/dL (0.0-1.0); WBC,Urine 3 /hpf (0-5)
[2025-01-02 02:37] LABS: Troponin I 0.062 ng/mL (0.0-0.045)
[2025-01-02 04:55] VITALS: BP 126/86; PULSE 80; RESP 17; TEMP 36.2; O2SAT 99
[2025-01-02 05:58] VITALS: BP 109/75; PULSE 87; RESP 15; TEMP 36.3; O2SAT 97
== END 2025-01-02 06:03 | disposition home or self-care (01) ==
PROVIDERS: Emergency Provider Emergency Medicine; PCP Family Medicine
DX: R53.1 Weakness (principal)
CPT/HCPCS: 36415; 71045; 80053; 80320; 81001; 83690; 83735; 83880; 84484; 85025; 93005; 96127; 99284; G0480